=== PATIENT | female | born 1940 ===

== ENCOUNTER → 2021-03-04 08:00 | Outpatient (CLI) | payer OTHER ==
[~2021-03-04] VITALS: Ht 152.4 cm; Wt 44.5 kg
[~2021-03-04 08:00] MED LIST: ADVIL200 MG; ALTACE5 MG PO; FOSAMAX70 MG PO; INTESTINEX680 M1 PO; PEPTO-BISMOL262 MG PO; VANCOMYCIN HCL125 MG PO
== END | disposition home or self-care (01) ==
LOC: LAB 08:00 → EDSTATUS 09:00 → CIR.AMB 03-07 09:00
PROVIDERS: ATTEND Orthopaedic Surgery Sports Medicine
DX: I10 Essential (primary) hypertension (principal); D68.8 Other specified coagulation defects; Z20.828 Contact with and (suspected) exposure to other viral communicable diseases

== ENCOUNTER 2021-03-04 20:52 | Inpatient (IN) | payer OTHER ==
[~2021-03-04] VITALS: Ht 152.4 cm; Wt 44.5 kg
[~2021-03-04 20:52] MED LIST changes: -ADVIL200 MG; -INTESTINEX680 M1 PO; -PEPTO-BISMOL262 MG PO; -VANCOMYCIN HCL125 MG PO
[2021-03-07] MEDS ORDERED: ADVIL200 MG (09:37)
== END 2021-03-11 11:18 | disposition home or self-care (01) | DRG 812 ==
LOC: ER 20:52 → SURH 03-05 10:00 → SEC-K 03-05 10:00 → SURH 03-06 22:44
PROVIDERS: ADMIT Internal Medicine Cardiovascular Disease; ATTEND Internal Medicine Cardiovascular Disease
PROC: 30233N1 Transfusion of Nonautologous Red Blood Cells into Peripheral Vein, Percutaneous Approach (ICD-10-PCS; principal; 2021-03-05)
PROC: BW2110Z Computerized Tomography (CT Scan) of Abdomen and Pelvis using Low Osmolar Contrast, Unenhanced and Enhanced (ICD-10-PCS; 2021-03-05)
PROC: 8E0ZXY6 Isolation (ICD-10-PCS; 2021-03-05)
DX: D64.9 Anemia, unspecified (principal); A04.72 Enterocolitis due to Clostridium difficile, not specified as recurrent; N39.0 Urinary tract infection, site not specified; K52.89 Other specified noninfective gastroenteritis and colitis; S42.391A Other fracture of shaft of right humerus, initial encounter for closed fracture; W19.XXXA Unspecified fall, initial encounter; Y93.89 Activity, other specified; Y92.89 Other specified places as the place of occurrence of the external cause; Y99.8 Other external cause status; Z20.822 Contact with and (suspected) exposure to COVID-19

== ENCOUNTER 2021-03-28 10:13 | Emergency (ER) | payer OTHER ==
[~2021-03-28] VITALS: Ht 157.5 cm; Wt 44.5 kg
[~2021-03-28 10:13] MED LIST changes: +ADVIL200 MG
[2021-03-28] MEDS ORDERED: PEPTO-BISMOL262 MG PO (17:20)
[2021-03-28] MEDS ORDERED: VANCOMYCIN HCL125 MG PO (17:20)
[2021-03-28] MEDS ORDERED: INTESTINEX680 M1 PO (17:20)
== END 2021-03-28 18:07 | disposition home or self-care (01) ==
LOC: ER 10:13
DX: R19.7 Diarrhea, unspecified (principal); Z03.818 Encounter for observation for suspected exposure to other biological agents ruled out

== ENCOUNTER 2024-05-04 19:17 | Emergency (ER) | payer OTHER ==
[~2024-05-04] VITALS: Ht 152.4 cm; Wt 45.4 kg
[~2024-05-04 19:17] MED LIST changes: +INTESTINEX680 M1 PO; +PEPTO-BISMOL262 MG PO; +VANCOMYCIN HCL125 MG PO
== END 2024-05-04 23:13 | disposition home or self-care (01) ==
LOC: ER 19:17
DX: S09.8XXA Other specified injuries of head, initial encounter (principal); W19.XXXA Unspecified fall, initial encounter; Y93.89 Activity, other specified; Y92.89 Other specified places as the place of occurrence of the external cause; Y99.8 Other external cause status; I10 Essential (primary) hypertension